=== PATIENT | female | born 1975 | race Caucasian/White ===

== ENCOUNTER 2016-09-16 09:08 | Outpatient (CLI) | payer OTHER ==
--- NOTE | 2016-09-16 10:00 | DIAGNOSTIC IMAGING REPORT ---
PROCEDURE: CT SINUS/FACIAL BONES W/O CONT CLINICAL INDICATION: CHRONIC SINUSITIS TECHNIQUE: Noncontrast axial CT images through the sinuses. Coronal and sagittal reformations were created. COMPARISON: None. FINDINGS: The frontal sinuses are normally aerated. No fluid levels. The outflow tracts are patent. Sphenoid sinuses and their outflow tracts are patent. Ethmoid air cells are fully aerated. The maxillary sinuses are normally aerated without mucosal thickening. The outflow tracts are patent. No mucosal thickening, retention cysts, fluid levels, or osteitis. The inferior, posterior to the midportion of the nasal septum is deviated towards the left with a moderate-sized leftward spur. Nasal passages are patent with diminutive left middle and inferior nasal turbinate morphology. Small right- sided aerated conscious bullosa. Mildly prominent adenoid pad. No facial bone fractures. Temporomandibular joints are normally aligned. Bony orbits are intact. Orbital soft tissues appear normal. Facial soft tissues and visible glandular structures are symmetric. Unerrupted right maxillary canine tooth. Spurring at the atlantodental interval. IMPRESSION: 1. No signs of acute or chronic sinus disease. 2. Leftward nasal septal deviation and spurring without airway narrowing or occlusion. 3. Mildly prominent adenoid pad for patient's age. All CT scans at this facility use dose modulation, iterative reconstruction, and/or weight-based dosing when appropriate to reduce radiation dose to as low as reasonably achievable.
== END 2016-09-16 23:00 ==
LOC: CT SRH 09:08
DX: J32.9 Chronic sinusitis, unspecified (principal); J34.2 Deviated nasal septum